=== PATIENT | male | born 1995 | race Caucasian/White ===

== ENCOUNTER 2023-07-08 19:30 | Emergency (ER) | payer OTHER ==
[~2023-07-08] VITALS: Ht 177.8 cm; Wt 90.7 kg
[~2023-07-08 19:30] MED LIST: ALBUTEROL0.09 MG/A2 INH; PREDNICOT20 MG PO; ZYRTEC10 MG PO
[2023-07-08 21:01] LABS: BILIRUBIN Negative (Negative); BLOOD Negative (Negative); CLARITY Clear (Clear); COLOR Dark Yellow (Yellow); GLUCOSE Negative (Negative); KETONE Negative (Negative); LEUKO ESTERASE 1+ (Negative); NITRITE Negative (Negative)
[2023-07-08 21:23] LABS: BACTERIA 1+; MUCOUS 1+; WBC 21-30 wbc/hpf (0-5)
[2023-07-08] MEDS ORDERED: CIPRO500 MG PO (21:57)
== END 2023-07-08 21:59 | disposition home or self-care (01) ==
LOC: ED 19:30
PROVIDERS: Internal Medicine
DX: N39.0 Urinary tract infection, site not specified (principal); Z88.8 Allergy status to other drugs, medicaments and biological substances; Z87.891 Personal history of nicotine dependence

== ENCOUNTER 2023-10-03 12:55 | Emergency (ER) | payer OTHER ==
[~2023-10-03] VITALS: Ht 177.8 cm; Wt 99.8 kg
[~2023-10-03 12:55] MED LIST changes: +CIPRO500 MG PO
[2023-10-03] MEDS ORDERED: AMOX-CLAV 875-1 EACH PO (13:37)
[2023-10-03] MEDS ORDERED: MELOXICAM15 MG PO (13:37)
== END 2023-10-03 13:44 | disposition home or self-care (01) ==
LOC: ED 12:55
DX: K02.9 Dental caries, unspecified (principal); K04.7 Periapical abscess without sinus; Z88.8 Allergy status to other drugs, medicaments and biological substances; F17.210 Nicotine dependence, cigarettes, uncomplicated